=== PATIENT | female | born 2005 | race Two or more races ===

== ENCOUNTER 2025-08-03 09:37 | Emergency (ER) | payer OTHER ==
[~2025-08-03] VITALS: Ht 162.6 cm; Wt 49.9 kg
[2025-08-03] MEDS ORDERED: CETIRIZINE HCL 5 MG/5 ML ML PO ONE (10:15)
[2025-08-03] MEDS ORDERED: BENZONATATE 200 MG CAPSULE PO ONE (10:15)
[2025-08-03] MEDS ORDERED: CETIRIZINE HCL 5MG/5ML BLIST.PACK PO ONE (10:33)
[2025-08-03 10:59] LABS: BASO % 0.2 % (0.1-1.2); EOS # 0.15 (0.04-0.54); EOS % 1.8 % (0.7-7.0); LYMPH # 1.46 (1.18-3.74); LYMPH % 17.5 % (19.3-53.1); MEAN PLATELET VOLUME 8.60 fl (9.4-12.4); MONO # 0.85 (0.24-0.82); MONO % 10.2 % (4.7-12.5); NEUT # 5.82 (1.56-6.13); NEUT % 70.1 % (34.0-71.1); RED CELL DISTRIBUTION WIDTH 11.9 % (11.6-14.4)
[2025-08-03 12:45] LABS: COVID-19 AG NEGATIVE (NEGATIVE)
[2025-08-03] MEDS ORDERED: BENZONATATE200 M1 PO (13:19)
[2025-08-03] MEDS ORDERED: GILPHEX TR 3901 EACH PO (13:19)
== END 2025-08-03 13:30 | disposition home or self-care (01) ==
LOC: ER 09:38
PROVIDERS: General Practice
DX: R09.81 Nasal congestion (principal); R05.8 Other specified cough; Z20.822 Contact with and (suspected) exposure to COVID-19